=== PATIENT | female | born 1965 | race Caucasian/White ===

== ENCOUNTER → 2025-06-14 15:28 | Outpatient (REF) | payer BC, SELFPAY | LOC: HWRAD 15:28 | PROVIDERS: ATTENDING PHYSICIAN Podiatrist Foot & Ankle Surgery; FAMILY PHYSICIAN Family Medicine | DX: M77.41 Metatarsalgia, right foot (principal); M77.42 Metatarsalgia, left foot | CPT/HCPCS: 73630 ==